=== PATIENT | female | born 1935 | race Caucasian/White ===

== ENCOUNTER → 2016-07-20 | Outpatient (CLI) | payer OTHER ==
[~2016-07-20] MED LIST: GADOBUTROL 10 ML VIAL IVP ONE
== END ==
LOC: FIMAGING 15:01
PROVIDERS: ATTEND Internal Medicine
DX: M54.5 Low back pain (principal); M51.34 Other intervertebral disc degeneration, thoracic region; M51.24 Other intervertebral disc displacement, thoracic region; Z98.1 Arthrodesis status; Z98.890 Other specified postprocedural states
CPT/HCPCS: 72157; A9585

== ENCOUNTER → 2016-08-09 | Outpatient (CLI) | payer OTHER ==
[~2016-08-09] MED LIST changes: -GADOBUTROL 10 ML VIAL IVP ONE; +LIDOCAINE 1% 30 ML SDV ONE; +NA BICARBONATE 50 MEQ/50 ML VIAL ONE
== END ==
LOC: FIMAGING 11:52
PROVIDERS: ATTEND Internal Medicine
PROC: 0GBH3ZX Excision of Right Thyroid Gland Lobe, Percutaneous Approach, Diagnostic (ICD-10-PCS; principal; 2016-08-09)
DX: E04.1 Nontoxic single thyroid nodule (principal)

== ENCOUNTER → 2017-08-02 | Outpatient (CLI) | payer OTHER | LOC: BHLMT 10:45 | PROVIDERS: ATTEND Internal Medicine Cardiovascular Disease | DX: R01.1 Cardiac murmur, unspecified (principal); R51 Headache; H53.9 Unspecified visual disturbance | CPT/HCPCS: 93306-PO; 93880-PO ==

== ENCOUNTER → 2017-08-11 | Outpatient (CLI) | payer OTHER | LOC: BHLMT 09:30 | PROVIDERS: ATTEND Internal Medicine Cardiovascular Disease | DX: I25.10 Atherosclerotic heart disease of native coronary artery without angina pectoris (principal) | CPT/HCPCS: 78452; 93017; A9500 ==